=== PATIENT | male | born 1960 | race Caucasian/White ===

== ENCOUNTER 2018-08-02 17:05 | Emergency (ER) | payer BC ==
[2018-08-02] MEDS: SOD CHLORIDE 0.9% 1,000 ML IV (18:52)
[2018-08-02] MEDS: ENALAPRILAT 1.25 MG INJ IV (19:00)
[2018-08-02 19:01] LABS: ADD MAN DIFF? NO
[2018-08-02 19:04] LABS: WHITE BLOOD COUNT 8.1 10^3/ul (4.8-10.8)
[2018-08-02 19:04] LABS: BASOPHILS % 0.5 % (0.0-2.0); EOSINOPHILS # 0.3 10^3/ul (0.0-0.5); EOSINOPHILS % 3.3 % (0.0-7.0); HEMATOCRIT 49.3 % (42.0-52.0); HEMOGLOBIN 16.6 g/dl (14.0-18.0); LYMPHOCYTES # 3.6 10^3/ul (0.8-2.9); LYMPHOCYTES % 44.2 % (15.0-51.0); MEAN CORPUSCULAR HEMOGLOBIN 30.1 pg (29.0-33.0); MEAN CORPUSCULAR HGB CONC 33.7 g/dl (32.0-37.0); MEAN CORPUSCULAR VOLUME 89.5 fl (82.0-101.0); MEAN PLATELET VOLUME 10.3 fl (7.4-10.4); MONOCYTE # 0.8 10^3/ul (0.3-0.9); MONOCYTES % 9.8 % (0.0-11.0); NEUTROPHIL # 3.4 10^3/ul (1.6-7.5); NEUTROPHILS % 42.1 % (39.0-77.0); PLATELET COUNT 279 10^3/UL (140-415); RED BLOOD COUNT 5.51 10^6/ul (4.70-6.10); RED CELL DISTRIBUTION WIDTH 13.7 % (11.5-14.5)
[2018-08-02 19:21] LABS: ALANINE AMINOTRANSFERASE 34 IU/L (13-69); ALBUMIN 4.5 g/dl (3.3-4.9); ALBUMIN/GLOBULIN RATIO 1.25; ALKALINE PHOSPHATASE 86 IU/L (42-121); ANION GAP 11 (5-13); ASPARTATE AMINO TRANSFERASE 27 IU/L (15-46); BILIRUBIN,INDIRECT 0.5 mg/dl (0-1.1); BILIRUBIN,TOTAL 0.5 mg/dl (0.2-1.3); BLOOD UREA NITROGEN 12 mg/dl (7-20); CALCIUM 9.5 mg/dl (8.4-10.2); CARBON DIOXIDE 26 mmol/L (21-31); CHLORIDE 105 mmol/L (97-110); CREATININE 0.58 mg/dl (0.61-1.24); Estimated GFR > 60 mL/min (>60); GLUCOSE 103 mg/dl (70-220); LIPASE 78 U/L (23-300); SODIUM 142 mmol/L (135-144); TOTAL PROTEIN 8.1 g/dl (6.1-8.1)
[2018-08-02 19:23] LABS: INR 0.89; PROTIME 12.2 Sec (11.9-14.9)
[2018-08-02 19:24] LABS: PARTIAL THROMBOPLASTIN TIME 26.7 Sec (23.0-35.0)
[2018-08-02 19:32] LABS: TROPONIN-I < 0.012 ng/ml (0.000-0.120)
[2018-08-02 19:34] LABS: POTASSIUM 4.2 mmol/L (3.5-5.1)
[2018-08-02] MEDS: SOD CHLORIDE 0.9% 100 ML (19:48)
[2018-08-02] MEDS: IOHEXOL 100 ML (19:49)
[2018-08-02 20:23] LABS: ETHANOL < 10.0 mg/dl (0-0)
[2018-08-02] MEDS: LORAZEPAM 2 MG INJ IV (22:07)
[2018-08-02] MEDS: ASPIRIN 81 MG TAB PO (22:07)
== END 2018-08-02 22:48 | disposition left against medical advice (07) ==
LOC: E/R 17:05
DX: H49.22 Sixth [abducent] nerve palsy, left eye (principal); I10 Essential (primary) hypertension; F17.210 Nicotine dependence, cigarettes, uncomplicated; I63.9 Cerebral infarction, unspecified; Z79.82 Long term (current) use of aspirin
CPT/HCPCS: 36415; 70450; 70496; 70498; 80053; 80307; 83690; 84484; 85025; 85610; 85730; 93005; 96374; 99285-25

== ENCOUNTER 2018-08-03 14:46 | Emergency (ER) | payer BC | END 2018-08-03 18:38 | disposition home or self-care (01) | LOC: E/R 14:46 | DX: G58.8 Other specified mononeuropathies (principal); I10 Essential (primary) hypertension; F17.210 Nicotine dependence, cigarettes, uncomplicated; Z79.82 Long term (current) use of aspirin | CPT/HCPCS: 99282; Z7502 ==